=== PATIENT | female | born 1960 | race Caucasian/White ===

== ENCOUNTER 2024-06-25 13:27 | Emergency (ER) | payer SELFPAY ==
[2024-06-25 13:41] VITALS: BP 143/76; PULSE 102; TEMP 36.8; O2SAT 96; BMI 36.5
--- NOTE | 2024-06-25 13:47 | CT_ITS ---
The [address] [address] Patient Name: ALLAN RAZO MRN: [id number] date: 1960 Sex: F Assigned Patient Location: ER Current Patient Location: ER Accession/Order Number: [id number] Exam Date: 06/25/2024 14:21 Report Date: 06/25/2024 14:47 At the request of: CLARISSA SMITH Procedure: CT head/brain wo con EXAM: CT head/brain wo con HISTORY: fall COMPARISON: None. TECHNIQUE: Axial CT scans through the head were obtained without IV contrast administration. Dose reduction techniques were achieved by using: automated exposure control and/or adjustment of mA and /or kV according to patient size and/or use of iterative reconstruction technique. FINDINGS: There is no acute intracranial hemorrhage or abnormal extra-axial fluid collection. No mass effect or midline shift is seen. There is no evidence of large acute territorial infarction. There is no hydrocephalus. To the limit of CT, the posterior fossa appears unremarkable. The calvaria and extra cranial soft tissues are unremarkable. The visualized orbits show no abnormality. The visualized paranasal sinuses show no air-fluid level. Mastoid air cells are clear. CT/CT head/brain wo con IMPRESSION: No acute intracranial process. Electronically authenticated by: SAMSON BERGMAN Date: 06/25/2024 14:47
--- NOTE | 2024-06-25 13:47 | XR_ITS ---
The [address] [address] Patient Name: ALLAN RAZO MRN: [id number] date: 1960 Sex: F Assigned Patient Location: ER Current Patient Location: ER Accession/Order Number: [id number] Exam Date: 06/25/2024 14:05 Report Date: 06/25/2024 14:42 At the request of: CLARISSA SMITH Procedure: XR hip RT 2V w/ pelvis PROCEDURE: XR hip RT 2V w/ pelvis COMPARISON: None. HISTORY: fall FINDINGS: BONES:No fracture, acute abnormality, or significant arthropathy. SOFT TISSUES:Negative. No visible soft tissue swelling. EFFUSION:None visible. OTHER: Negative. XR/XR hip RT 2V w/ pelvis IMPRESSION: No acute abnormality Electronically authenticated by: SUSI CHACON Date: 06/25/2024 14:42
--- NOTE | 2024-06-25 13:47 | XR_ITS ---
The [address] [address] Patient Name: ALLAN RAZO MRN: [id number] date: 1960 Sex: F Assigned Patient Location: ER Current Patient Location: ED.MAIN Accession/Order Number: [id number] Exam Date: 06/25/2024 14:05 Report Date: 06/25/2024 14:40 At the request of: CLARISSA SMITH Procedure: XR knee RT 4V PROCEDURE: XR knee RT 4V COMPARISON: None. HISTORY: fall FINDINGS: BONES:No fracture, acute abnormality, or significant arthropathy. SOFT TISSUES:Negative. No visible soft tissue swelling. EFFUSION:None visible. OTHER: Negative. XR/XR knee RT 4V IMPRESSION: No acute abnormality Electronically authenticated by: SUSI CHACON Date: 06/25/2024 14:40
--- NOTE | 2024-06-25 13:48 | ED.GENADUL1 ---
HPI HPI - General Adult General Chief complaint: Fall Stated complaint: FALL Time Seen by Provider: 06/25/24 13:37 Source: patient Mode of arrival: walk-in History of Present Illness HPI narrative: Patient is a 63-year-old female who presents to the emergency department for evaluation of head injury with scalp laceration as well as pain in the right hip and knee. She drove herself to the emergency department from the [facility] facility across a parking lot after she tripped and fell landing on her right side. Tetanus is up-to-date. She denies loss of consciousness, neck pain. She has chronic back pain that is not worse or different now. Bleeding is well-controlled to a small right sided scalp laceration. She reports a headache. No visual changes or peripheral paresthesias. She is ambulatory. She does not take any blood thinners. Related Data Home Medications ?Medication ?Instructions ?Recorded ?Confirmed hydrochlorothiazide 25 mg tablet 12.5 mg PO DAILY 06/25/24 06/25/24 losartan 25 mg tablet 25 mg PO DAILY 06/25/24 06/25/24 simvastatin 20 mg tablet 20 mg PO DAILY 06/25/24 06/25/24 Allergies Allergy/AdvReac Type Severity Reaction Status Date / Time Sulfa (Sulfonamide Allergy Hives Verified 06/25/24 13:41 Antibiotics) erythromycin base AdvReac Nausea Verified 06/25/24 13:41 Opioid HPI Opioid Management Most Recent Opioid Data: Last Pain Scale 2 06/25/24 14:26 06/25/24 Last MAR Pain Assessment 06/25/24 14:26 Review of Systems ROS Constitutional Denies: fever or chills Ears, nose, mouth, and throat Denies: throat pain, neck pain or nasal congestion Cardiovascular Denies: chest pain Respiratory Denies: shortness of breath Gastrointestinal Denies: nausea or vomiting Musculoskeletal Denies: back pain or neck pain Integumentary/Breast Denies: rash Neurological Reports: headache; Denies: numbness in extremities or weakness in extremities Hematologic/Lymphatic Denies: easy bruising or easy bleeding PFSH PFSH Social History Little interest or pleasure in doing things: not at all Feeling down, depressed, or hopeless: several days Exam Narrative Exam Narrative: Gen.: Awake, alert, in no distress Head: Normocephalic, 3 cm superficial scalp laceration noted without hematoma to the right temporal scalp. No Hall sign or raccoon eyes. No facial or dental injury. ENT: Moist mucous membranes, C-spine nontender Respiratory: No respiratory distress, lungs clear bilaterally Cardio: Regular rate and rhythm Back: No bony tenderness of the T-spine or L-spine Extremities: Moves extremities equally, faint abrasion noted of the right arm without tenderness of the elbow or wrist. Diffuse mild tenderness of the right lateral hip and right knee with no obvious deformity or areas of ecchymosis. No joint effusion noted. Psych: Normal mood and affect Neuro: No focal neuro deficit Skin: Warm, dry Constitutional Vital Signs, click to edit/add: Last Vital Signs Temp 98.2 F 06/25/24 13:41 Pulse 102 H 06/25/24 13:41 Resp 18 06/25/24 13:41 BP 143/76 H 06/25/24 13:41 Pulse Ox 96 06/25/24 13:41 O2 Del Method Room Air 06/25/24 13:41 Course Vital Signs Vital signs: Vital Signs Temperature 98.2 F 06/25/24 13:41 Pulse Rate 102 H 06/25/24 13:41 Respiratory Rate 18 06/25/24 13:41 Blood Pressure 143/76 H 06/25/24 13:41 Pulse Oximetry 96 06/25/24 13:41 Oxygen Delivery Method Room Air 06/25/24 13:41 Temperature 98.2 F 06/25/24 13:41 Pulse Rate 102 H 06/25/24 13:41 Respiratory Rate 18 06/25/24 13:41 Blood Pressure 143/76 H 06/25/24 13:41 Pulse Oximetry 96 06/25/24 13:41 Oxygen Delivery Method Room Air 06/25/24 13:41 Medical Decision Making MDM Narrative Medical decision making narrative: 4 cc of 1% lidocaine were injected locally and the area was cleansed with peroxide and Hibiclens to the right scalp. 3 miriam were placed with excellent alignment of the laceration. No active bleeding. Dressed with bacitracin. CT of the head, x-rays of the right hip, pelvis, right knee are unremarkable per the radiologist and the patient is discharged home with close head injury instructions. She is encouraged to take Motrin and Tylenol as needed. Return to the emergency department if symptoms change or worsen. Barton out in 10 days with PCP. SUPERVISED APC VISIT, PHYSICIAN ATTESTATION: Based on the medical record the care appears appropriate. ? Medical Records Medical records reviewed: Yes I reviewed the patient's medical records Imaging Data CT scan - head: Attestation: I have reviewed the pertinent imaging results. Radiologist's impression: ITS Impressions Head CT 06/25/24 13:47 IMPRESSION: No acute intracranial process. Electronically authenticated by: SAMSON BERGMAN Date: 06/25/2024 14:47 Hip/Pelvis X-Ray 06/25/24 13:47 IMPRESSION: No acute abnormality Electronically authenticated by: SUSI CHACON Date: 06/25/2024 14:42 Knee X-Ray 06/25/24 13:47 IMPRESSION: No acute abnormality Electronically authenticated by: SUSI CHACON Date: 06/25/2024 14:40 Discharge Plan Discharge Chief Complaint: Fall Clinical Impression: Fall, Closed head injury, Laceration of scalp, Contusion of right hip, Contusion of right knee Patient Disposition: Home, Self-Care Time of Disposition Decision: 14:53 Condition: Good Prescriptions / Home Meds: No Action simvastatin 20 mg tablet 20 mg PO DAILY losartan 25 mg tablet 25 mg PO DAILY hydrochlorothiazide 25 mg tablet 12.5 mg PO DAILY Print Language: Setswana Instructions: Laceration (ED), Head Injury (ED), Contusion in Adults (ED) Referrals: Physician,Non-Staff, MD [Primary Care Provider] - 1 week
[2024-06-25] MEDS: BACITRACIN 0.9 GM PACKET 1 PACKET TOPICAL (14:00)
[2024-06-25] MEDS: LIDOCAINE HCL 1% 100 MG/10 ML MDV INJ (14:01)
[2024-06-25] MEDS: ACETAMINOPHEN 500 MG TABLET 1000 MG PO (14:26)
== END 2024-06-25 14:57 | disposition home or self-care (01) ==
PROVIDERS: Emergency Provider Emergency Medicine
DX: S01.01XA Laceration without foreign body of scalp, initial encounter (principal); S70.01XA Contusion of right hip, initial encounter; S80.01XA Contusion of right knee, initial encounter; S09.8XXA Other specified injuries of head, initial encounter; W01.0XXA Fall on same level from slipping, tripping and stumbling without subsequent striking against object, initial encounter; S40.811A Abrasion of right upper arm, initial encounter
CPT/HCPCS: 12002; 70450; 73502; 73564; 99284